=== PATIENT | female | born 1975 | race African-American/Black ===

== ENCOUNTER 2019-12-14 10:27 | Emergency (ER) | payer MEDICAID ==
[2019-12-14] MEDS ORDERED: ONDANSETRON 4 MG TAB.RAPDIS PO ONE (11:07)
[2019-12-14 11:22] LABS: APPEARANCE,URINE SLIGHTLY-CLOUDY; BILIRUBIN,URINE NEGATIVE (NEGATIVE); COLOR,URINE YELLOW; GLUCOSE, URINE NEGATIVE (NEGATIVE); KETONES,URINE NEGATIVE (NEGATIVE); LEUKOCYTE ESTERASE,URINE NEGATIVE (NEGATIVE); NITRITE,URINE NEGATIVE (NEGATIVE); PROTEIN,URINE 30 mg/dL (NEGATIVE); URINE SPECIFIC GRAVITY 1.021; UROBILINOGEN,URINE NEGATIVE mg/dL (<2.0)
[2019-12-14 11:52] LABS: ABSOLUTE LYMPHOCYTES (AUTO) 1.2 10^3/uL (0.5-4.7); ABSOLUTE MONOCYTES (AUTO) 0.6 10^3/uL (0.1-1.4); ABSOLUTE NEUT (AUTO) 4.3 10^3/uL (1.7-8.2); BASOPHILS % (AUTO) 0.5 % (0-2); EOSINOPHILS % (AUTO) 0.7 % (0-6); HEMATOCRIT 41.8 % (36.0-47.0); HEMOGLOBIN 14.1 g/dL (12.0-15.5); LYMPHOCYTES % (AUTO) 19.7 % (13-45); MEAN CORPUSCULAR HEMOGLOBIN 29.9 pg (27.0-33.4); MEAN CORPUSCULAR HGB CONC 33.8 g/dL (32.0-36.0); MEAN CORPUSCULAR VOLUME 88 fl (80-97); MONOCYTES % (AUTO) 10.1 % (3-13); PLATELET COUNT 149 10^3/uL (150-450); RED BLOOD COUNT 4.73 10^6/uL (3.72-5.28); RED CELL DISTRIBUTION WIDTH 13.9 % (11.5-14.0); TOTAL CELLS COUNTED % (AUTO) 100 %; WHITE BLOOD COUNT 6.2 10^3/uL (4.0-10.5)
--- NOTE | 2019-12-14 11:52 | ER Document Report ---
ED GI/ - General Chief Complaint: Nausea/Vomiting/Diarrhea Stated Complaint: NAUSEA,VOMITING,DIARRHEA Time Seen by Provider: 12/14/19 10:41 Notes: CHIEF COMPLAINT: Nausea vomiting diarrhea HPI: 44-year-old female presenting with 2 days of diarrhea 3-4 episodes daily without blood, 1 day of nausea with 2 episodes of vomiting. Not nauseated currently. No fever or dysuria. Denies abdominal pain ROS: See HPI - all other systems were reviewed and are otherwise negative Constitutional: no fever Eyes: no drainage, no blurred vision ENT: no runny nose, no sore throat Cardiovascular: no chest pain Resp: no SOB, no cough GI: + vomiting, + diarrhea, no abdominal pain : no dysuria Integumentary: no rash Allergy: no hives Musculoskeletal: no extremity pain or swelling Neurological: no numbness/tingling, no weakness MEDICATIONS: I agree with the patient medications as charted by the RN. ALLERGIES: I agree with the allergies as charted by the RN. PAST MEDICAL HISTORY/PAST SURGICAL HISTORY: Reviewed and agree as charted by RN. SOCIAL HISTORY: Reviewed and agree as charted by RN. FAMILY HISTORY: No significant familial comorbid conditions directly related to patient complaint EXAM: Reviewed vital signs as charted by RN. CONSTITUTIONAL: Alert and oriented and responds appropriately to questions. Well-appearing; well-nourished HEAD: Normocephalic; atraumatic EYES: PERRL; Conjunctivae clear, sclerae non-icteric ENT: normal nose; no rhinorrhea; moist mucous membranes; pharynx without lesions noted, no uvula edema or deviation, no tonsillar hypertrophy, phonation normal NECK: Supple without meningismus; non-tender; no cervical lymphadenopathy, no masses CARD: RRR; no murmurs, no clicks, no rubs, no gallops; symmetric distal pulses RESP: Normal chest excursion without splinting or tachypnea; breath sounds clear and equal bilaterally; no wheezes, no rhonchi, no rales, pulse oximetry 99% on room air not hypoxic ABD/GI: Normal bowel sounds; non-distended; soft, non-tender, no rebound, no guarding; no palpable organomegaly or masses. BACK: The back appears normal and is non-tender to palpation, there is no CVA t enderness EXT: Normal ROM in all joints; non-tender to palpation; no cyanosis, no effusions, no edema SKIN: Normal color for age and race; warm; dry; good turgor; no acute lesions noted NEURO: Moves all extremities equally; Motor and sensory function intact PSYCH: The patient's mood and manner are appropriate. Grooming and personal hygiene are appropriate. MDM: 44-year-old female presenting for nausea vomiting diarrhea, has no abdominal pain on exam. Will obtain basic screening labs to ensure no abnormalities, will check TSH, COVID study. - Related Data Allergies/Adverse Reactions: No Known Allergies Allergy (Unverified 12/14/19 11:03) Past Medical History - Social History Smoking Status: Never Smoker Frequency of alcohol use: Occasional Drug Abuse: None Family History: Reviewed & Not Pertinent Patient has homicidal ideation: No Past Surgical History: Reports: Hx Abdominal Surgery - hernia, Hx Cholecystectomy, Hx Gynecologic Surgery Physical Exam - Vital signs Vitals: Temp Pulse Resp BP Pulse Ox 98.0 F 90 16 126/86 H 98 12/14/19 10:39 12/14/19 10:39 12/14/19 10:39 12/14/19 10:39 12/14/19 10:39 Course - Re-evaluation Re-evalutation: 12/14/19 13:16 Patient's labs do not show acute emergent abnormalities. She will be considered a person under investigation for COVID-19 at this time self quarantine at home. She will take Kaopectate for diarrhea. She declines nausea medication. Will return for worsening condition or onset of abdominal pain - Vital Signs Vital signs: Temp Pulse Resp BP Pulse Ox 98.0 F 90 16 126/86 H 98 12/14/19 10:40 12/14/19 10:39 12/14/19 10:39 12/14/19 10:39 12/14/19 10:39 - Laboratory Result Diagrams: 12/14/19 11:23 12/14/19 11:23 Laboratory results interpreted by me: 12/14/19 12/14/19 12/14/19 11:00 11:23 11:23 Plt Count 149 L Potassium 3.3 L AST 64 H ALT 116 H Total Protein 8.9 H Urine Protein 30 H Urine Blood MODERATE H Discharge - Discharge Clinical Impression: Person under investigation for COVID-19 Diarrhea Qualifiers: Diarrhea type: unspecified type Qualified Code(s): R19.7 - Diarrhea, unspecified Condition: Stable Disposition: HOME, SELF-CARE Additional Instructions: Take Kaopectate for diarrhea. Push fluids at home. Return for onset of fever or abdominal pain. You are considered a person under investigation for COVID-19 at this time self quarantine at home until you have a negative test result. This usually takes 2 to 5 days and you should hear from someone at the hospital about your result Referrals: RENNY SCOTT MD [COMMUNITY BASED STAFF] - Follow up as needed
[2019-12-14 12:38] LABS: ALBUMIN 4.7 g/dL (3.5-5.0); ALKALINE PHOSPHATASE 94 U/L (38-126); ANION GAP 9 (5-19); ASPARTATE AMINO TRANSFERASE 64 U/L (14-36); BILIRUBIN,DIRECT 0.4 mg/dL (0.0-0.4); BILIRUBIN,TOTAL 0.5 mg/dL (0.2-1.3); BLOOD UREA NITROGEN 9 mg/dL (7-20); CALCIUM 9.5 mg/dL (8.4-10.2); CARBON DIOXIDE 30 mmol/L (22-30); CHLORIDE 100 mmol/L (98-107); GLUCOSE 106 mg/dL (75-110); POTASSIUM 3.3 mmol/L (3.6-5.0); TOTAL PROTEIN 8.9 g/dL (6.3-8.2)
[2019-12-14 13:30] VITALS: BP 127/79
== END 2019-12-14 13:30 | disposition home or self-care (01) ==
LOC: ER 10:27
DX: R19.7 Diarrhea, unspecified (principal); R11.2 Nausea with vomiting, unspecified; Z20.828 Contact with and (suspected) exposure to other viral communicable diseases
CPT/HCPCS: 99283; 36415; 84443; 85025; 87635; 81025; 80053; 81001; C9803

== ENCOUNTER 2020-01-29 12:47 | Emergency (ER) | payer MEDICAID ==
[2020-01-29] MEDS ORDERED: DOCUSATE SODIUM 100 MG CAPSULE RT_EAR ONE (13:30)
--- NOTE | 2020-01-29 13:35 | ER Document Report ---
HPI - HPI Time Seen by Provider: 01/29/20 13:28 Pain Level: 1 Notes: CHIEF COMPLAINT: Right ear fullness for 1 week HPI: 44-year-old female presenting for right ear fullness for 1 week. Does not know she has a cerumen impaction. Has not tried anything at home for this and has not seen her PCP for this. No fever or cough ROS: See HPI - all other systems were reviewed and are otherwise negative Constitutional: no fever Eyes: no drainage, no blurred vision ENT: no runny nose, no sore throat positive right ear pain Cardiovascular: no chest pain Resp: no SOB, no cough GI: no vomiting, no diarrhea, no abdominal pain : no dysuria Integumentary: no rash Allergy: no hives Musculoskeletal: no extremity pain or swelling Neurological: no numbness/tingling, no weakness MEDICATIONS: I agree with the patient medications as charted by the RN. ALLERGIES: I agree with the allergies as charted by the RN. PAST MEDICAL HISTORY/PAST SURGICAL HISTORY: Reviewed and agree as charted by RN. SOCIAL HISTORY: Reviewed and agree as charted by RN. FAMILY HISTORY: No significant familial comorbid conditions directly related to patient complaint EXAM: Reviewed vital signs as charted by RN. CONSTITUTIONAL: Alert and oriented and responds appropriately to questions. Well-appearing; well-nourished HEAD: Normocephalic; atraumatic EYES: PERRL; Conjunctivae clear, sclerae non-icteric ENT: normal nose; no rhinorrhea; moist mucous membranes; pharynx without lesions noted, no uvula edema or deviation, no tonsillar hypertrophy, phonation normal. Left tympanic membrane is pearly kang. Right tympanic membrane occluded by dark cerumen far down in the auditory canal NECK: Supple without meningismus; non-tender; no cervical lymphadenopathy, no masses CARD: symmetric distal pulses RESP: Normal chest excursion without splinting or tachypnea ABD/GI: non-distended. BACK: The back appears normal EXT: Normal ROM in all joints; no cyanosis, no effusions, no edema SKIN: Normal color for age and race; warm; dry; good turgor; no acute lesions noted NEURO: Moves all extremities equally; Motor and sensory function intact PSYCH: The patient's mood and manner are appropriate. Grooming and personal hygiene are appropriate. MDM: 44-year-old female with a right cerumen impaction will have nursing place [facility] in attempt to irrigate. - EENT EENT: REPORTS: Ear Pain Past Medical History - Social History Smoking Status: Never Smoker Family History: Reviewed & Not Pertinent Past Surgical History: Reports: Hx Abdominal Surgery - hernia, Hx Cholecystectomy, Hx Gynecologic Surgery Course - Re-evaluation Re-evalutation: 01/29/20 15:11 Right auditory canal completely clear after irrigation. No perforation of the tympanic membrane. Will discharge home to follow-up with PCP - Vital Signs Vital signs: Temp Pulse Resp BP Pulse Ox 98.3 F 72 18 124/79 97 01/29/20 13:06 01/29/20 13:06 01/29/20 13:06 01/29/20 13:06 01/29/20 13:06 Discharge - Discharge Clinical Impression: Impacted cerumen of right ear Condition: Stable Disposition: HOME, SELF-CARE Instructions: Cerumen Impaction ([facility]) Additional Instructions: Use a small amount of peroxide and warm water mixed in a 50-50 concentration once or twice a week to help keep the ears clean. Avoid Q-tips. Follow-up with a primary care provider for reevaluation of symptoms recur Referrals: EMELI ESCOBAR MD [ACTIVE STAFF] - Follow up as needed
[2020-01-29 15:28] VITALS: BP 118/87
== END 2020-01-29 15:28 | disposition home or self-care (01) ==
LOC: ER 12:47
DX: H61.21 Impacted cerumen, right ear (principal)
CPT/HCPCS: 99283; J3490